=== PATIENT | female | born 1970 | race Caucasian/White ===

== ENCOUNTER 2017-07-03 16:12 | Emergency (ER) | payer OTHER ==
[~2017-07-03] VITALS: Wt 57.8 kg
[~2017-07-03 16:12] MED LIST: ACET-141 PO; CIPR500T4 PO; DOCU-144 PO; MAGN296S40 PO; POLY17PO6 PO
[2017-07-03] MEDS ORDERED: LORAZEPAM 1 MG TAB PO ONE (17:30)
--- NOTE | 2017-07-03 17:49 | ERD ---
ER Documentation Chief Complaint Chief Complaint ANXIETY HPI This is a 46-year-old female that presents to the ER stating she is very anxious , she has had anxiety for years now and got into an argument with her earlier today. Patient additionally complains of chest pain and of palpitations. Symptoms began after the argument with her . Chest pain is not exertional, she denies any shortness of breath. Patient states that whenever she has anxiety attacks she feels this way. Patient denies any physical abuse. Patient also complaining of a very severe headache, she denies any vision loss, vision changes she denies any head trauma. Patient denies any photophobia. Headache is throbbing in quality it is located on the left side of her head. She denies any head trauma. Denies n/v/d. ROS 12 point review of systems was done, all negative except per HPI. Medications Home Meds Active Scripts Lorazepam* (Ativan*) 0.5 Mg Tablet, 0.5 MG PO Q8, #10 TAB Prov:FERNANDO ESTEVEZ 07/03/17 Ibuprofen* (Motrin*) 600 Mg Tab, 600 MG PO Q6, #30 TAB Prov:FERNANDO ESTEVEZ 07/03/17 Docusate Sodium* (Colace*) 100 Mg Capsule, 100 MG PO TID, #30 CAP Prov:MAGALIS CALVERT LUMBER CARRIER OPERATOR 07/24/16 Polyethylene Glycol* (Miralax*) 17 Gm Powd.pack, 17 GM PO DAILY, #7 Prov:MAGALIS CALVERT LUMBER CARRIER OPERATOR 07/24/16 Ciprofloxacin Hcl* (Ciprofloxacin Hcl*) 500 Mg Tablet, 500 MG PO BID for 3 Days , TAB Prov:BEATRICE MEYERS DO 07/02/16 Magnesium Citrate* (Magnesium Citrate*) 296 Ml Solution, 296 ML PO ONCE, #1 BOTTLE Prov:BEATRICE MEYERS DO 07/02/16 Polyethylene Glycol* (Miralax*) 17 Gm Powd.pack, 17 GM PO DAILY, #10 PACKET Prov:BEATRICE MEYERS DO 07/02/16 Acetaminophen* (Acetaminophen*) 500 MG Extra Strength Tablet, 500 MG PO Q4H Y for PAIN AND OR ELEVATED TEMP, #20 TAB Prov:BEATRICE MEYERS DO 07/02/16 Allergies Allergies: Coded Allergies: No Known Allergy (Unverified , 07/01/16) PMhx/Soc History of Surgery: Yes (Tahbso, Cyst removal) Anesthesia Reaction: No Hx Neurological Disorder: No Hx Respiratory Disorders: No Hx Cardiac Disorders: No Hx Psychiatric Problems: No Hx Miscellaneous Medical Probl: No Hx Alcohol Use: No Hx Substance Use: No Hx Tobacco Use: No Smoking Status: Never smoker Physical Exam Vitals Vital Signs Date Time Temp Pulse Resp B/P Pulse Ox O2 Delivery O2 Flow Rate FiO2 07/03/17 16:15 98.0 88 18 129/79 97 Physical Exam GENERAL: The patient is well developed and appropriate for usual state of health , in no apparent distress. HEENT: Atraumatic. Conjunctivae are pink. Pupils equal, round, and reactive to light. Extraocular muscles are grossly intact. Bilateral tympanic membranes are clear with no evidence of erythema, effusion or dulling of the light reflex. The oropharynx is clear with no erythema or exudates. NECK: C-spine is soft and supple. There is no cervical lymphadenopathy. CHEST: Clear to auscultation bilaterally. There are no rales, wheezes or rhonchi. HEART: Regular rate and rhythm. No murmurs, clicks, rubs or gallops. EXTREMITIES: Full range of motion. Grossly neurovascularly intact. No upper or lower extremity weakness. NEURO: Alert and oriented. Cranial nerves II through XII are intact. Motor strength in all 4 extremities with 5/5 strength. Sensation grossly intact. Normal speech and gait. SKIN: There is no apparent rash or petechia. The skin is warm and dry. Results 24 hrs Current Medications Medications (Trade) Dose Ordered Sig/Francisco Route PRN Reason Start Time Stop Time Status Last Admin Dose Admin Lorazepam (Ativan) 1 mg ONCE ONCE PO 07/03/17 17:30 07/03/17 17:31 DC 07/03/17 18:18 [place] [address] Radiology Main Line: [phone] DIAGNOSTIC IMAGING REPORT Patient: PHI COHEN : 1970 Age: 46 Sex: F MR #: [id number] DOS: 07/03/17 0000 Ordering MD: FERNANDO ESTEVEZ PA-C Location: [facility] Room/Bed: PROCEDURE: CT Head without contrast. CLINICAL INDICATION: Headaches TECHNIQUE: The study was performed utilizing a GE 64-slice multidetector CT scanner. Direct spiral axial CT images of the brain were obtained from the vertex to the skull base without contrast. Coronal and sagittal reformat images are provided. The CTDI vol is 45.01 mGy and the DLP is 720.23 mGy-cm. The images were reviewed on a PACS workstation. One or more of the following dose reduction techniques were used: Automated exposure control. Adjustment of the mA and/or kV according to patient size. Use of iterative reconstruction technique. COMPARISON: No prior studies are available for comparison. FINDINGS: The ventricles and cortical sulci are within normal limits. The menon-white matter differentiation is maintained. No intra or extra-axial fluid collection or mass effect or shift in the midline structures is seen. The visualized paranasal sinuses, mastoid air cells, orbits, and calvarium are unremarkable. IMPRESSION: No acute intracranial pathology. RPTAT: HPNM Physician Matt Date Time Electronically viewed and signed by Physician Matt on 07/03/2017 18 :52 / CC: FERNANDO ESTEVEZ [place] [address] Radiology Main Line: [phone] DIAGNOSTIC IMAGING REPORT Patient: PHI COHEN : 1970 Age: 46 Sex: F MR #: [id number] DOS: 07/03/17 0000 Ordering MD: FERNANDO ESTEVEZ PA-C Location: [facility] Room/Bed: PROCEDURE: XR Chest. CLINICAL INDICATION: Chest pain. TECHNIQUE: PA and Lateral views of the chest were obtained. COMPARISON: None. FINDINGS: The cardiomediastinal silhouette is within normal limits. The lungs are clear. No signs of pleural fluid or pneumothorax are seen. The osseous structures and soft tissues are unremarkable. IMPRESSION: No evidence for active cardiopulmonary disease. RPTAT:AAJJ Rhiannon Mcnulty Physician Date Time Electronically viewed and signed by Rhiannon Mcnulty Physician on 07/03/2017 18:59 QL/ CC: FERNANDO ESTEVEZ Procedures/[facility] EKG read by Dr. Valencia 62bpm no ST elevation or T wave inversion This is a 46-year-old female presents to the ER complaining of anxiety. Patient also has associated chest pain, palpitations and a severe headache. Differential diagnosis includes but is not limited to; STEMI, dissection, pneumothorax, PE, esophageal rupture, tamponade, pneumonia, pericarditis, GERD, musculoskeletal, endocarditis, anxiety. Patient's physical examination is completely benign, patient likely has anxiety. I doubt acute cardiac etiology, patient has had a history of anxiety in the past. Her symptoms were completely resolved after Lorazepam. In regards to patient's headaches suspicion for acute intracranial pathology is low. Her neurological examination is completely benign with no focal neurological deficits. Patient's imaging studies were also negative. Be sent home with Lorazepam with ibuprofen. She is to follow-up with her primary care doctor within 1-2 days return to ER sooner if symptoms worsen. My medical decision making shared with the patient she understands and agrees with plan. Departure Diagnosis: Primary Impression: Anxiety Condition: Stable FERNANDO ESTEVEZ Jul 03, 2017 17:49
--- NOTE | 2017-07-03 17:49 | ERD ---
ER Documentation Chief Complaint Chief Complaint ANXIETY HPI This is a 46-year-old female that presents to the ER stating she is very anxious , she has had anxiety for years now and got into an argument with her earlier today. Patient additionally complains of chest pain and of palpitations. Symptoms began after the argument with her . Chest pain is not exertional, she denies any shortness of breath. Patient states that whenever she has anxiety attacks she feels this way. Patient denies any physical abuse. Patient also complaining of a very severe headache, she denies any vision loss, vision changes she denies any head trauma. Patient denies any photophobia. Headache is throbbing in quality it is located on the left side of her head. She denies any head trauma. Denies n/v/d. ROS 12 point review of systems was done, all negative except per HPI. Medications Home Meds Active Scripts Lorazepam* (Ativan*) 0.5 Mg Tablet, 0.5 MG PO Q8, #10 TAB Prov:FERNANDO ESTEVEZ 07/03/17 Ibuprofen* (Motrin*) 600 Mg Tab, 600 MG PO Q6, #30 TAB Prov:FERNANDO ESTEVEZ 07/03/17 Docusate Sodium* (Colace*) 100 Mg Capsule, 100 MG PO TID, #30 CAP Prov:MAGALIS CALVERT FLIGHT ENGINEER INSTRUCTOR 07/24/16 Polyethylene Glycol* (Miralax*) 17 Gm Powd.pack, 17 GM PO DAILY, #7 Prov:MAGALIS CALVERT FLIGHT ENGINEER INSTRUCTOR 07/24/16 Ciprofloxacin Hcl* (Ciprofloxacin Hcl*) 500 Mg Tablet, 500 MG PO BID for 3 Days , TAB Prov:BEATRICE MEYERS DO 07/02/16 Magnesium Citrate* (Magnesium Citrate*) 296 Ml Solution, 296 ML PO ONCE, #1 BOTTLE Prov:BEATRICE MEYERS DO 07/02/16 Polyethylene Glycol* (Miralax*) 17 Gm Powd.pack, 17 GM PO DAILY, #10 PACKET Prov:BEATRICE MEYERS DO 07/02/16 Acetaminophen* (Acetaminophen*) 500 MG Extra Strength Tablet, 500 MG PO Q4H Y for PAIN AND OR ELEVATED TEMP, #20 TAB Prov:BEATRICE MEYERS DO 07/02/16 Allergies Allergies: Coded Allergies: No Known Allergy (Unverified , 07/01/16) PMhx/Soc History of Surgery: Yes (Tahbso, Cyst removal) Anesthesia Reaction: No Hx Neurological Disorder: No Hx Respiratory Disorders: No Hx Cardiac Disorders: No Hx Psychiatric Problems: No Hx Miscellaneous Medical Probl: No Hx Alcohol Use: No Hx Substance Use: No Hx Tobacco Use: No Smoking Status: Never smoker Physical Exam Vitals Vital Signs Date Time Temp Pulse Resp B/P Pulse Ox O2 Delivery O2 Flow Rate FiO2 07/03/17 16:15 98.0 88 18 129/79 97 Physical Exam GENERAL: The patient is well developed and appropriate for usual state of health , in no apparent distress. HEENT: Atraumatic. Conjunctivae are pink. Pupils equal, round, and reactive to light. Extraocular muscles are grossly intact. Bilateral tympanic membranes are clear with no evidence of erythema, effusion or dulling of the light reflex. The oropharynx is clear with no erythema or exudates. NECK: C-spine is soft and supple. There is no cervical lymphadenopathy. CHEST: Clear to auscultation bilaterally. There are no rales, wheezes or rhonchi. HEART: Regular rate and rhythm. No murmurs, clicks, rubs or gallops. EXTREMITIES: Full range of motion. Grossly neurovascularly intact. No upper or lower extremity weakness. NEURO: Alert and oriented. Cranial nerves II through XII are intact. Motor strength in all 4 extremities with 5/5 strength. Sensation grossly intact. Normal speech and gait. SKIN: There is no apparent rash or petechia. The skin is warm and dry. Results 24 hrs Current Medications Medications (Trade) Dose Ordered Sig/Francisco Route PRN Reason Start Time Stop Time Status Last Admin Dose Admin Lorazepam (Ativan) 1 mg ONCE ONCE PO 07/03/17 17:30 07/03/17 17:31 DC 07/03/17 18:18 [place] [address] Radiology Main Line: [phone] DIAGNOSTIC IMAGING REPORT Patient: PHI COHEN : 1970 Age: 46 Sex: F MR #: [id number] DOS: 07/03/17 0000 Ordering MD: FERNANDO ESTEVEZ PA-C Location: [facility]TE Room/Bed: PROCEDURE: CT Head without contrast. CLINICAL INDICATION: Headaches TECHNIQUE: The study was performed utilizing a GE 64-slice multidetector CT scanner. Direct spiral axial CT images of the brain were obtained from the vertex to the skull base without contrast. Coronal and sagittal reformat images are provided. The CTDI vol is 45.01 mGy and the DLP is 720.23 mGy-cm. The images were reviewed on a PACS workstation. One or more of the following dose reduction techniques were used: Automated exposure control. Adjustment of the mA and/or kV according to patient size. Use of iterative reconstruction technique. COMPARISON: No prior studies are available for comparison. FINDINGS: The ventricles and cortical sulci are within normal limits. The menon-white matter differentiation is maintained. No intra or extra-axial fluid collection or mass effect or shift in the midline structures is seen. The visualized paranasal sinuses, mastoid air cells, orbits, and calvarium are unremarkable. IMPRESSION: No acute intracranial pathology. RPTAT: HPNM Physician Matt Date Time Electronically viewed and signed by Physician Matt on 07/03/2017 18 :52 / CC: FERNANDO ESTEVEZ [place] [address] Radiology Main Line: [phone] DIAGNOSTIC IMAGING REPORT Patient: PHI COHEN : 1970 Age: 46 Sex: F MR #: [id number] DOS: 07/03/17 0000 Ordering MD: FERNANDO ESTEVEZ PA-C Location: [facility]TE Room/Bed: PROCEDURE: XR Chest. CLINICAL INDICATION: Chest pain. TECHNIQUE: PA and Lateral views of the chest were obtained. COMPARISON: None. FINDINGS: The cardiomediastinal silhouette is within normal limits. The lungs are clear. No signs of pleural fluid or pneumothorax are seen. The osseous structures and soft tissues are unremarkable. IMPRESSION: No evidence for active cardiopulmonary disease. RPTAT:AAJJ Rhiannon Mcnulty Physician Date Time Electronically viewed and signed by Rhiannon Mcnulty Physician on 07/03/2017 18:59 QL/ CC: FERNANDO ESTEVEZ Procedures/[facility] EKG read by Dr. Valencia 62bpm no ST elevation or T wave inversion This is a 46-year-old female presents to the ER complaining of anxiety. Patient also has associated chest pain, palpitations and a severe headache. Differential diagnosis includes but is not limited to; STEMI, dissection, pneumothorax, PE, esophageal rupture, tamponade, pneumonia, pericarditis, GERD, musculoskeletal, endocarditis, anxiety. Patient's physical examination is completely benign, patient likely has anxiety. I doubt acute cardiac etiology, patient has had a history of anxiety in the past. Her symptoms were completely resolved after Lorazepam. In regards to patient's headaches suspicion for acute intracranial pathology is low. Her neurological examination is completely benign with no focal neurological deficits. Patient's imaging studies were also negative. Be sent home with Lorazepam with ibuprofen. She is to follow-up with her primary care doctor within 1-2 days return to ER sooner if symptoms worsen. My medical decision making shared with the patient she understands and agrees with plan. Departure Diagnosis: Primary Impression: Anxiety Condition: Stable FERNANDO ESTEVEZ Jul 03, 2017 17:49
--- NOTE | 2017-07-03 17:49 | ERD ---
ER Documentation Chief Complaint Chief Complaint ANXIETY HPI This is a 46-year-old female that presents to the ER stating she is very anxious , she has had anxiety for years now and got into an argument with her earlier today. Patient additionally complains of chest pain and of palpitations. Symptoms began after the argument with her . Chest pain is not exertional, she denies any shortness of breath. Patient states that whenever she has anxiety attacks she feels this way. Patient denies any physical abuse. Patient also complaining of a very severe headache, she denies any vision loss, vision changes she denies any head trauma. Patient denies any photophobia. Headache is throbbing in quality it is located on the left side of her head. She denies any head trauma. Denies n/v/d. ROS 12 point review of systems was done, all negative except per HPI. Medications Home Meds Active Scripts Lorazepam* (Ativan*) 0.5 Mg Tablet, 0.5 MG PO Q8, #10 TAB Prov:FERNANDO ESTEVEZ 07/03/17 Ibuprofen* (Motrin*) 600 Mg Tab, 600 MG PO Q6, #30 TAB Prov:FERNANDO ESTEVEZ 07/03/17 Docusate Sodium* (Colace*) 100 Mg Capsule, 100 MG PO TID, #30 CAP Prov:MAGALIS CALVERT POWER PLANT SUPERINTENDENT 07/24/16 Polyethylene Glycol* (Miralax*) 17 Gm Powd.pack, 17 GM PO DAILY, #7 Prov:MAGALIS CALVERT POWER PLANT SUPERINTENDENT 07/24/16 Ciprofloxacin Hcl* (Ciprofloxacin Hcl*) 500 Mg Tablet, 500 MG PO BID for 3 Days , TAB Prov:BEATRICE MEYERS DO 07/02/16 Magnesium Citrate* (Magnesium Citrate*) 296 Ml Solution, 296 ML PO ONCE, #1 BOTTLE Prov:BEATRICE MEYERS DO 07/02/16 Polyethylene Glycol* (Miralax*) 17 Gm Powd.pack, 17 GM PO DAILY, #10 PACKET Prov:BEATRICE MEYERS DO 07/02/16 Acetaminophen* (Acetaminophen*) 500 MG Extra Strength Tablet, 500 MG PO Q4H Y for PAIN AND OR ELEVATED TEMP, #20 TAB Prov:BEATRICE MEYERS DO 07/02/16 Allergies Allergies: Coded Allergies: No Known Allergy (Unverified , 07/01/16) PMhx/Soc History of Surgery: Yes (Tahbso, Cyst removal) Anesthesia Reaction: No Hx Neurological Disorder: No Hx Respiratory Disorders: No Hx Cardiac Disorders: No Hx Psychiatric Problems: No Hx Miscellaneous Medical Probl: No Hx Alcohol Use: No Hx Substance Use: No Hx Tobacco Use: No Smoking Status: Never smoker Physical Exam Vitals Vital Signs Date Time Temp Pulse Resp B/P Pulse Ox O2 Delivery O2 Flow Rate FiO2 07/03/17 16:15 98.0 88 18 129/79 97 Physical Exam GENERAL: The patient is well developed and appropriate for usual state of health , in no apparent distress. HEENT: Atraumatic. Conjunctivae are pink. Pupils equal, round, and reactive to light. Extraocular muscles are grossly intact. Bilateral tympanic membranes are clear with no evidence of erythema, effusion or dulling of the light reflex. The oropharynx is clear with no erythema or exudates. NECK: C-spine is soft and supple. There is no cervical lymphadenopathy. CHEST: Clear to auscultation bilaterally. There are no rales, wheezes or rhonchi. HEART: Regular rate and rhythm. No murmurs, clicks, rubs or gallops. EXTREMITIES: Full range of motion. Grossly neurovascularly intact. No upper or lower extremity weakness. NEURO: Alert and oriented. Cranial nerves II through XII are intact. Motor strength in all 4 extremities with 5/5 strength. Sensation grossly intact. Normal speech and gait. SKIN: There is no apparent rash or petechia. The skin is warm and dry. Results 24 hrs Current Medications Medications (Trade) Dose Ordered Sig/Francisco Route PRN Reason Start Time Stop Time Status Last Admin Dose Admin Lorazepam (Ativan) 1 mg ONCE ONCE PO 07/03/17 17:30 07/03/17 17:31 DC 07/03/17 18:18 [place] [address] Radiology Main Line: [phone] DIAGNOSTIC IMAGING REPORT Patient: PHI COHEN : 1970 Age: 46 Sex: F MR #: [id number] DOS: 07/03/17 0000 Ordering MD: FERNANDO ESTEVEZ PA-C Location: [facility]TE Room/Bed: PROCEDURE: CT Head without contrast. CLINICAL INDICATION: Headaches TECHNIQUE: The study was performed utilizing a GE 64-slice multidetector CT scanner. Direct spiral axial CT images of the brain were obtained from the vertex to the skull base without contrast. Coronal and sagittal reformat images are provided. The CTDI vol is 45.01 mGy and the DLP is 720.23 mGy-cm. The images were reviewed on a PACS workstation. One or more of the following dose reduction techniques were used: Automated exposure control. Adjustment of the mA and/or kV according to patient size. Use of iterative reconstruction technique. COMPARISON: No prior studies are available for comparison. FINDINGS: The ventricles and cortical sulci are within normal limits. The menon-white matter differentiation is maintained. No intra or extra-axial fluid collection or mass effect or shift in the midline structures is seen. The visualized paranasal sinuses, mastoid air cells, orbits, and calvarium are unremarkable. IMPRESSION: No acute intracranial pathology. RPTAT: HPNM Physician Matt Date Time Electronically viewed and signed by Physician Matt on 07/03/2017 18 :52 / CC: FERNANDO ESTEVEZ [place] [address] Radiology Main Line: [phone] DIAGNOSTIC IMAGING REPORT Patient: PHI COHEN : 1970 Age: 46 Sex: F MR #: [id number] DOS: 07/03/17 0000 Ordering MD: FERNANDO ESTEVEZ PA-C Location: [facility]TE Room/Bed: PROCEDURE: XR Chest. CLINICAL INDICATION: Chest pain. TECHNIQUE: PA and Lateral views of the chest were obtained. COMPARISON: None. FINDINGS: The cardiomediastinal silhouette is within normal limits. The lungs are clear. No signs of pleural fluid or pneumothorax are seen. The osseous structures and soft tissues are unremarkable. IMPRESSION: No evidence for active cardiopulmonary disease. RPTAT:AAJJ Rhiannon Mcnulty Physician Date Time Electronically viewed and signed by Rhiannon Mcnulty Physician on 07/03/2017 18:59 QL/ CC: FERNANDO ESTEVEZ Procedures/[facility] EKG read by Dr. Valencia 62bpm no ST elevation or T wave inversion This is a 46-year-old female presents to the ER complaining of anxiety. Patient also has associated chest pain, palpitations and a severe headache. Differential diagnosis includes but is not limited to; STEMI, dissection, pneumothorax, PE, esophageal rupture, tamponade, pneumonia, pericarditis, GERD, musculoskeletal, endocarditis, anxiety. Patient's physical examination is completely benign, patient likely has anxiety. I doubt acute cardiac etiology, patient has had a history of anxiety in the past. Her symptoms were completely resolved after Lorazepam. In regards to patient's headaches suspicion for acute intracranial pathology is low. Her neurological examination is completely benign with no focal neurological deficits. Patient's imaging studies were also negative. Be sent home with Lorazepam with ibuprofen. She is to follow-up with her primary care doctor within 1-2 days return to ER sooner if symptoms worsen. My medical decision making shared with the patient she understands and agrees with plan. Departure Diagnosis: Primary Impression: Anxiety Condition: Stable FERNANDO ESTEVEZ Jul 03, 2017 17:49
--- NOTE | 2017-07-03 18:52 | RADRPT ---
PROCEDURE: CT Head without contrast. CLINICAL INDICATION: Headaches TECHNIQUE: The study was performed utilizing a GE 64-slice multidetector CT scanner. Direct spiral axial CT images of the brain were obtained from the vertex to the skull base without contrast. Cor onal and sagittal reformat images are provided. The CTDI vol is 45.01 mGy and the DLP is 720.23 mGy -cm. The images were reviewed on a PACS workstation. One or more of the following dose reduction techniques were used: Automated exposure control. Adjustment of the mA and/or kV according to patient size. Use of iterative reconstruction technique. COMPARISON: No prior studies are available for comparison. FINDINGS: The ventricles and cortical sulci are within normal limits. The menon-white matter differentiation i s maintained. No intra or extra-axial fluid collection or mass effect or shift in the midline struc tures is seen. The visualized paranasal sinuses, mastoid air cells, orbits, and calvarium are unrem arkable. IMPRESSION: No acute intracranial pathology. RPTAT: HPNM Physician Matt Date Time Electronically viewed and signed by Physician Matt on 07/03/2017 18:52 /
--- NOTE | 2017-07-03 18:59 | RADRPT ---
PROCEDURE: XR Chest. CLINICAL INDICATION: Chest pain. TECHNIQUE: PA and Lateral views of the chest were obtained. COMPARISON: None. FINDINGS: The cardiomediastinal silhouette is within normal limits. The lungs are clear. No signs of pleural f luid or pneumothorax are seen. The osseous structures and soft tissues are unremarkable. IMPRESSION: No evidence for active cardiopulmonary disease. RPTAT:AAJJ Rhiannon Mcnulty Physician Date Time Electronically viewed and signed by Rhiannon Mcnulty Physician on 07/03/2017 18:59 QL/
[2017-07-03] MEDS ORDERED: IBUP-1542 PO (19:09)
[2017-07-03] MEDS ORDERED: LORA-441 PO (19:10)
== END 2017-07-03 19:29 | disposition home or self-care (01) ==
LOC: FTE 16:12
DX: F41.9 Anxiety disorder, unspecified (principal); R51 Headache; R07.9 Chest pain, unspecified
CPT/HCPCS: 70450; 71010; 93005

== ENCOUNTER 2018-07-05 12:28 | Emergency (ER) | END 2018-07-05 15:26 | disposition home or self-care (01) ==